=== PATIENT | female | born 1930 | race Caucasian/White ===

== ENCOUNTER 2016-04-04 10:46 | Emergency (ER) | payer MEDICARE ==
[~2016-04-04] VITALS: Ht 165.1 cm; Wt 54.5 kg
[~2016-04-04 10:46] MED LIST: CALC600T12 PO; CHOL100045 PO; DOCU-41 PO; FLAX1CAP4 PO; MAGN400O4 PO; OMEG1CAP25 PO; VITAMIN C COMPLEX PO
[2016-04-04 11:11] VITALS: BP_SYST 133; BP_DIAS 7; BP_DIAS 77; PULSE 82; RESP 16; O2SAT 98
--- NOTE | 2016-04-04 11:16 | ED.REPORT ---
HPI-Abd Pain F 40 and Over Date of Service Apr 04, 2016 ED Provider: Dr. Maximilian Toro M.D. An 85 year old female with a history of lower back pain, rectal prolapse, and hypoglycemia presents to the ED with a prolapsed rectum onset this morning while going to the bathroom. She denies other symptoms. Nursing Notes Stated Complaint: PROLAPSED RECTUM Chief Complaint: Female Abdominal Pain Nursing Notes Reviewed: Yes Allergies: Coded Allergies: No Known Allergies (Verified Allergy, Unknown, 04/04/16) Scheduled ([vitamin c complex]) 1 TAB PO [id number] Calcium Carbonate (Calcium) 600 Mg Tablet 1,200 MG PO DAILY Cholecalciferol (Vitamin D3) (Vitamin D) 1,000 Unit Capsule 5,000 UNIT PO thu- thu-thu Flaxseed/Omega3,6,9/Fatty Acid (Flax Seed Oil 1,300 mg Softgel) 1 Each Capsule 1 EACH PO DAILY Magnesium Hydroxide (Milk of Magnesia) 400 Mg/5 Ml Oral.susp 0 PO HS [place]-3 Fatty Acids/Fish Oil ([place] 3 Fish Oil Softgel) 1 Each Capsule.dr 1 EACH PO DAILY Scheduled PRN Docusate Sodium (Colace) 100 Mg Capsule 100 MG PO DAILY PRN PRN For Constipation General Time Seen by MD: 11:16 Chief Complaint Other (Prolapsed rectum) Hx Obtained From: Patient Arrived By: Ambulance Sudden in Onset?: Yes Onset Occurred: 1 - 4 hours ago Symptom Duration: Since onset Severity: Current: No pain currently Severity: Maximum: No pain Associated with: Denies: Chest pain, Fever, Vomiting Pertinent Negative: Relieved by nothing Recent Healthcare: No recent doctor visit Similar Sx Previous: Yes Past Medical History Past Medical History Notes: PCP: Dr. Erik Patiño Past Medical History Lower back problem Rectal prolapse Hypoglycemia Past Surgical History denies Smoking History Never Smoker Social History Alcohol Use: Denies alcohol use Drug Use: Denies drug use Other Social History: Lives in [facility], Local resident Ambulatory Status Independent Review of Systems + Prolapsed rectum Constitutional: Denies: Fever Respiratory: Denies: Non-productive cough, Shortness of breath GI: Denies: Vomiting Musculoskeletal: Denies: Extremity pain Complete sys rev & neg: except as marked. Physical Exam Vital Signs Vital Signs (First) Date Time Temp Pulse Resp B/P Pulse Ox O2 Delivery O2 Flow Rate FiO2 04/04/16 11:11 36.4 82 16 133/77 98 Room Air Initial VS: Reviewed Head / Eyes: Atraumatic, Normocephalic ENT: Conjunctiva normal, No scleral icterus Neck: Supple, Full range of motion Skin: Warm, Dry, No cyanosis Neurologic: Alert, Oriented, Nonfocal Psychiatric: Mood/affect normal, Behavior normal, Normal thought content General/Constitutional: Awake, Alert Abdomen: Soft, Non-tender Rectum / Perineum Abnl: Positive: Rectal prolapse present Re-Eval/Medical Decision Source of Hx: Old records Re-Evaluation/Progress : Time of Eval: 11:21 Patient Status: Condition improved Re-Evaluation/Progress Note: Reduction accomplished with general steady pressure. Discussed with patient diagnosis and plan for discharge. Follow-up and return to the ER instructions given. Patient agrees with plan for care and all questions were addressed. Counseled Regarding: Diagnosis, Need for follow-up, When/why to return to ED Discharge & Departure Primary Impression: Rectal prolapse Disposition: Home Discharge Condition All VS Reviewed: Yes Condition: Stable Additional Instructions: Thank you for entrusting us with your care. The prolapse was easily reduced and his back inside now. Call your primary care provider tomorrow for a follow-up appointment. Return to the ER with any new or worsening symptoms. Referrals: Erik Patiño (PCP) [facility] Attestation Portions of this note were transcribed by Cynthia Elias. I, Dr. Toro, personally performed the history, physical exam, and medical decision-making; I reviewed and confirmed the accuracy of the information in the transcribed note. Signed by: Bobbi Aguilar, 04/04/2016, 12:25 copies to: Erik Patiño Kirk H MD Apr 04, 2016 11:16 CYNTHIA ELIAS Apr 04, 2016 11:23
== END 2016-04-04 11:35 | disposition home or self-care (01) ==
LOC: EDUNIT# 10:46 → SED 10:46 → EDBD 10:46 → SED 11:35
DX: K62.3 Rectal prolapse (principal)